=== PATIENT | male | born 1995 | race Caucasian/White ===

== ENCOUNTER 2016-10-23 11:26 | Emergency (ER) | payer BC, OTHER ==
[~2016-10-23] VITALS: Ht 190.5 cm; Wt 174.6 kg
--- NOTE | 2016-10-23 12:12 | ED EENT ---
History of Present Illness General Chief Complaint: Oral/Throat Problems Stated Complaint: SORE THROAT/SWELLING Nursing Triage Note: PT REPORTS "SORES IN MOUTH" X 4 DAYS. HE REPORTS THAT HE HAS BEEN SEEN AND TX AT [facility] TWICE WITH NO IMPROVEMENT. Source: patient Exam Limitations: no limitations History of Present Illness Time seen by provider: 12:11 Initial Comments 21-year-old male patient presents to the emergency department with complaints of sore throat for 4 days. Also reports "sores in the mouth." Patient states he was treated at [place] and urgent care with no improvement in symptoms. States he has been on amoxicillin. Patient reports fever and nausea today. Denies taking any Tylenol or ibuprofen today. Timing/Duration: gradual Location: mouth, throat Prearrival Treatment: no prearrival treatment Presenting Symptoms/Injuries: sore throat, mouth sores, fever, nausea. Modifying Factors: Worse With Antibiotics (no improvement.), Worse With Other ( worse with swallowing) Allergies and Home Medications Allergies Coded Allergies: No Known Drug Allergies (Unverified , 10/23/16) Home Medications Acyclovir 400 Mg Tablet #30 400 MG PO TID Prescribed by: DAMIAN CRUM on 10/23/16 1348 Hydrocodone/Acetaminophen 1 Each Tablet #20 1 EACH PO Q4H PRN PRN PAIN Prescribed by: DAMIAN CRUM on 10/23/16 1421 Review of Systems Constitutional: chills diaphoresisNo dizziness, fever malaiseNo weakness Eyes: No Symptoms Reported Ears: No Symptoms Reported Nose: no symptoms reported Mouth: see HPI paindenies swelling, other (sores in the mouth.) Throat: paindenies swelling, denies neck stiffness, denies hoarse, denies aphonia, denies muffled, painful swallowingdenies difficulty with fluids Respiratory: no symptoms reported Cardiovascular: no symptoms reported Gastrointestinal: No abdominal pain, No constipation, No diarrhea, No dysphagia , loss of appetite nauseaNo vomiting Musculoskeletal: no symptoms reported Skin: no symptoms reported Neurological: No Symptoms Reported Immunological/Allergic: no symptoms reported All Other Systems Reviewed Negative Unless Noted: Yes (Negative excepted noted.) Past Rmtdnbm-Ukydte-Pzmerp Hx Patient Social History Alcohol Use: Denies Use Recreational Drug Use: No Smoking Status: Never a Smoker 2nd Hand Smoke Exposure: No Recent Foreign Travel: No Contact w/Someone Who Travel: No Recent Infectious Disease Expo: No Recent Hopitalizations: No Seasonal Allergies Seasonal Allergies: No Surgeries HX Surgeries: No Respiratory Hx Respiratory Disorders: No Cardiovascular Hx Cardiac Disorders: No Neurological Hx Neurological Disorders: No Gastrointestinal Hx Gastrointestinal Disorders: No Musculoskeletal Hx Musculoskeletal Disorders: No HEENT HX ENT Disorders: No Reviewed Nursing Assessment Reviewed/Agree w Nursing PMH: Yes Family Medical History Significant Family History: No Pertinent Family Hx Physical Exam Vital Signs Vital Sign - Last 12Hours 10/23/16 11:50 Temp 99.0 Pulse 91 Resp 18 B/P 138/84 Pulse Ox 98 O2 Delivery Room Air General Appearance: WD/WN no apparent distress Eyes: bilateral eye EOMI, bilateral eye PERRL, bilateral eye normal inspection Ears: bilateral ear TM normal, bilateral ear auricle normal, bilateral ear canal normal Nose: normal inspection Mouth/Throat: No excessive drooling, No mandibular swelling, No maxillary swelling, No pharynx swelling, pharynx tendernessNo tonsillar exudate, tonsillar swellingNo trismus, No uvula swelling, No voice changes, other ((+) vesicles with erythematous bases of the palate, posterior pharynx, buccal mucosa , gums, and tongue. Patient is able to swallow his own secrestions w/o difficulty.) Neck: full range of motion supple lymphadenopathy (R) (anterior cervical lymphadenopathy, tender to palpation.) lymphadenopathy (L) (anterior cervical lymphadenopathy, tender palpation.) other (trachea midline.) Cardiovascular: normal peripheral pulses regular rate, rhythm no edema no murmur Respiratory: lungs clear normal breath sounds no respiratory distress Gastrointestinal: normal bowel sounds non tender softNo distended Neurologic/Psychiatric: alert normal mood/affect oriented x 3 Skin: normal color warm/dry (increased warmth) diaphoresis Progress/Results/Core Measures Results/Orders Lab Results Laboratory Tests Test 10/23/16 13:10 10/23/16 13:19 Range/Units Alanine Aminotransferase (ALT/SGPT) 43 0-55 U/L Albumin 4.5 3.2-4.5 G/DL Alkaline Phosphatase 75 40-136 U/L Anion Gap 14 5-14 MMOL/L Aspartate Amino Transf (AST/SGOT) 23 5-34 U/L BUN/Creatinine Ratio 14 Band Neutrophils 5 % Basophils # (Auto) 0.0 0.0-0.1 10^3/uL Basophils (%) (Auto) 0 0-10 % Blood Morphology Comment NORMAL Blood Urea Nitrogen 12 7-18 MG/DL C-Reactive Protein High Sensitivity 4.97 H 0.00-0.50 MG/DL Calcium Level 9.3 8.5-10.1 MG/DL Carbon Dioxide Level 21 21-32 MMOL/L Chloride Level 103 98-107 MMOL/L Creatinine 0.84 0.60-1.30 MG/DL Dohle Bodies SLIGHT Eosinophils # (Auto) 0.0 0.0-0.3 10^3/uL Eosinophils (%) (Auto) 0 0-10 % Estimat Glomerular Filtration Rate > 60 Glucose Level 121 H 70-105 MG/DL Hematocrit 45 40-54 % Hemoglobin 15.3 13.3-17.7 G/DL Lymphocytes # (Auto) 0.6 L 1.0-4.0 X 10^3 Lymphocytes % (Manual) 10 % Lymphocytes (%) (Auto) 5 L 12-44 % Mean Corpuscular Hemoglobin 28 25-34 PG Mean Corpuscular Hemoglobin Concent 34 32-36 G/DL Mean Corpuscular Volume 81 80-99 FL Mean Platelet Volume 10.2 7.4-10.4 FL Monocytes # (Auto) 0.5 0.0-1.0 X 10^3 Monocytes % (Manual) 4 % Monocytes (%) (Auto) 4 0-12 % Neutrophils # (Auto) 10.2 H 1.8-7.8 X 10^3 Neutrophils % (Manual) 81 % Neutrophils (%) (Auto) 91 H 42-75 % Platelet Count 293 130-400 10^3/uL Potassium Level 4.1 3.6-5.0 MMOL/L Red Blood Count 5.54 4.35-5.85 10^6/uL Red Cell Distribution Width 13.7 10.0-14.5 % Sodium Level 138 135-145 MMOL/L Total Bilirubin 0.5 0.1-1.0 MG/DL Total Protein 7.5 6.4-8.2 G/DL Toxic Granulation 1+ White Blood Count 11.3 H 4.3-11.0 10^3/uL Lactic Acid Level 0.9 0.5-2.0 MMOL/L My Orders Orders-DAMIAN CRUM Cbc With Automated Diff (10/23/16 12:35) Comprehensive Metabolic Panel (10/23/16 12:35) Hs C Reactive Protein (2/5/17 12:35) Lactic Acid Analyzer (10/23/16 12:35) Saline Lock/Iv-Start (10/23/16 12:35) Hydrocodone/Apap 10/325 Tablet (Lortab 1 (10/23/16 12:35) Ketorolac Injection (Toradol Injection) (10/23/16 12:35) Ns Iv 1000 Ml (Sodium Chloride 0.9%) (10/23/16 12:35) Ondansetron Injection (Zofran Injectio (10/23/16 12:45) Lidocaine 2% Viscous 15 Ml (Xylocaine Vi (10/23/16 12:45) Manual Differential (10/23/16 13:10) Medications Given in ED Current Medications Medications Dose Ordered Sig/Ni Route Start Time Stop Time Status Last Admin Dose Admin Lidocaine HCl 15 ml ONCE ONCE PO 10/23/16 12:45 10/23/16 12:46 DC 10/23/16 12:54 15 ML Ondansetron HCl 4 mg ONCE ONCE IVP 10/23/16 12:45 10/23/16 12:46 DC 10/23/16 13:00 4 MG Sodium Chloride 1,000 ml @ 0 mls/hr Q0M ONCE IV 10/23/16 12:35 10/23/16 12:39 DC 10/23/16 13:01 0 MLS/HR Vital Signs/I&O Vital Sign - Last 12Hours 10/23/16 14:26 Temp 99.0 Pulse 85 Resp 18 Pulse Ox 98 Blood Pressure Mean: 102 Departure Communication Progress Notes Patient reports feeling much better after IV fluids and medications given in the emergency department. Patient instructed to continue usual home medications including antibiotics until completed. We'll plan for discharge with prescriptions for acyclovir, Magic mouthwash, and hydrocodone. All return precautions were discussed with the patient as described in the discharge instructions of this report. Patient instructed to follow-up with primary care physician of his choice for recheck. Patient voices understanding and agrees with the treatment plan. Impression Impression: Primary Impression: Herpetic gingivostomatitis Disposition: HOME, SELF-CARE Condition: Improved Departure-Patient Inst. Decision time for Depature: 13:45 Referrals: NO,LOCAL PHYSICIAN (PCP/Family) Primary Care Physician Patient Instructions: Gingivostomatitis, Child (DC) Add. Discharge Instructions: All discharge instructions reviewed with patient and/or family. Voiced understanding. Medications as instructed. Tylenol extra strength over-the- counter as directed for pain. Ibuprofen 800 mg by mouth every 8 hours as needed for pain. Drink plenty of fluids. Follow-up with your family practitioner for recheck as an outpatient. Call Monday morning for appointment time. Return to the emergency department for worsened pain, difficulty swallowing, difficulty breathing, fever, or any other concerns. Scripts Hydrocodone/Acetaminophen (Hydrocodon-Acetaminoph 7.5-325)1 Each Tablet1 Each PO Q4H PRN PAIN #20 TAB Ref 0 Prov:DAMIAN CRUM 10/23/16 Acyclovir 400 Mg [id number] Mg PO TID #30 TAB Ref 0 Prov:DAMIAN CRUM 10/23/16 Work/School Note: Local Medical Staff Listing DAMIAN CRUM Oct 23, 2016 12:12
[2016-10-23] MEDS ORDERED: HYDROcodone/APAP 10 MG/325 MG (LORTAB) TAB PO STA (12:35)
[2016-10-23] MEDS ORDERED: NS IV 1000 ML 1,000 ML IV ONE (12:35)
[2016-10-23] MEDS ORDERED: KETOROLAC 30 MG/ML VIAL IVP STA (12:35)
[2016-10-23] MEDS ORDERED: ONDANSETRON 4 MG/2 ML (SDV) Z0FRAN IVP ONE (12:45)
[2016-10-23] MEDS ORDERED: LIDOCAINE 2% VISCOUS 15 ML UDC PO ONE (12:45)
[2016-10-23 13:19] LABS: BASOPHILS % (AUTO) 0 % (0-10); EOSINOPHILS % (AUTO) 0 % (0-10); LYMPHOCYTES # (AUTO) 0.6 X 10^3 (1.0-4.0); LYMPHOCYTES % (AUTO) 5 % (12-44); MEAN CORPUSCULAR HEMOGLOBIN 28 PG (25-34); MEAN CORPUSCULAR HGB CONC 34 G/DL (32-36); MEAN CORPUSCULAR VOLUME 81 FL (80-99); MEAN PLATELET VOLUME 10.2 FL (7.4-10.4); MONOCYTES # (AUTO) 0.5 X 10^3 (0.0-1.0); MONOCYTES % (AUTO) 4 % (0-12); NEUTROPHILS # (AUTO) 10.2 X 10^3 (1.8-7.8); NEUTROPHILS % (AUTO) 91 % (42-75); PLATELET COUNT 293 10^3/uL (130-400); RED BLOOD COUNT 5.54 10^6/uL (4.35-5.85); RED CELL DISTRIBUTION WIDTH 13.7 % (10.0-14.5); WHITE BLOOD COUNT 11.3 10^3/uL (4.3-11.0)
[2016-10-23 13:35] LABS: ALANINE AMINOTRANSFERASE 43 U/L (0-55); ALBUMIN 4.5 G/DL (3.2-4.5); ANION GAP 14 MMOL/L (5-14); ASPARTATE AMINO TRANSFERASE 23 U/L (5-34); BILIRUBIN,TOTAL 0.5 MG/DL (0.1-1.0); BLOOD UREA NITROGEN 12 MG/DL (7-18); BUN/CREATININE RATIO 14; CALCIUM 9.3 MG/DL (8.5-10.1); CARBON DIOXIDE 21 MMOL/L (21-32); CHLORIDE 103 MMOL/L (98-107); CREATININE SERUM 0.84 MG/DL (0.60-1.30); GFR ESTIMATED > 60; GLUCOSE 121 MG/DL (70-105); POTASSIUM 4.1 MMOL/L (3.6-5.0); SODIUM 138 MMOL/L (135-145); TOTAL PROTEIN 7.5 G/DL (6.4-8.2); hs C REACTIVE PROTEIN 4.97 MG/DL (0.00-0.50)
[2016-10-23 13:43] LABS: BAND NEUTROPHILS 5 %; LYMPHOCYTES % (MANUAL) 10 %; NEUTROPHILS % (MANUAL) 81 %
[2016-10-23] MEDS ORDERED: ACYC400T PO (13:48)
[2016-10-23] MEDS ORDERED: TRAM50TA2 PO (13:50)
[2016-10-23] MEDS ORDERED: HYDR-3816 PO (14:21)
[2016-10-23 14:26] VITALS: BP 129/86
== END 2016-10-23 14:28 | disposition home or self-care (01) ==
LOC: EDUNIT# 11:26 → ER 11:29
DX: B00.2 Herpesviral gingivostomatitis and pharyngotonsillitis (principal)
CPT/HCPCS: 36415; 80053; 83605; 85007; 85027; 86141; 96361; 96374; 96375